=== PATIENT | female | born 1965 | race Caucasian/White ===

== ENCOUNTER → 2016-07-24 | Outpatient (CLI) | payer MEDICARE | LOC: MAMO 10:00 | DX: Z12.31 Encounter for screening mammogram for malignant neoplasm of breast (principal); Z90.710 Acquired absence of both cervix and uterus | CPT/HCPCS: G0202 ==

== ENCOUNTER 2021-06-09 12:14 | Inpatient (IN) | payer MEDICARE ==
[~2021-06-09] VITALS: Ht 172.7 cm; Wt 108.9 kg
[2021-06-09 13:35] LABS: HEMOGLOBIN 11.8 gm/dl (12.3-15.3); RED BLOOD COUNT 4.84 M/UL (4.00-5.10); WHITE BLOOD COUNT 7.3 K/UL (4.5-11.0)
[2021-06-09 14:11] LABS: BUN/CREATININE RATIO 15 (0-10)
[2021-06-09] MEDS ORDERED: ESCITALOPRAM OX20 MG PO (17:01)
[2021-06-09] MEDS ORDERED: LORAZEPAM0.5 MG PO (17:02)
[2021-06-09] MEDS ORDERED: METFORMIN HCL500 MG PO (17:02)
[2021-06-09] MEDS ORDERED: ROPINIROLE HCL0.5 MG PO (17:02)
[2021-06-09] MEDS ORDERED: LEVOTHYROXINE100 MCG PO (17:02)
[2021-06-09] MEDS ORDERED: OMEPRAZOLE40 MG PO (17:03)
[2021-06-09] MEDS ORDERED: LIPITOR TAB 2020 MG PO (17:03)
[2021-06-09] MEDS ORDERED: FAMOTIDINE20 MG PO (17:03)
[2021-06-09] MEDS ORDERED: CYANOCOBAL1000 MCG/1 INJ (17:04)
[2021-06-09] MEDS ORDERED: GABAPENTIN300 MG PO (17:04)
[2021-06-09] MEDS ORDERED: TYLENOL EXTRA500 MG PO (17:05)
[2021-06-09] MEDS ORDERED: VITAMIN D21250 MCG PO (17:05)
[2021-06-10 04:37] LABS: HEMOGLOBIN 10.6 gm/dl (12.3-15.3); RED BLOOD COUNT 4.42 M/UL (4.00-5.10); WHITE BLOOD COUNT 3.5 K/UL (4.5-11.0)
[2021-06-10 05:01] LABS: BUN/CREATININE RATIO 14 (0-10)
--- NOTE | 2021-06-10 13:55 | NUR ---
REQUESTED TO HAS CULINARY ARTIST CASE MANAGEMENT SET UP HOME OXYGEN FOR THIS PT AT [facility]. NURSE, SELF PAY REPRESENTATIVE, AND PARTS PERSON HAVE TRIED TO CONTACT CULINARY ARTIST ANIMAL PHYSIOLOGIST WITH NO SUCCESS.
--- NOTE | 2021-06-10 14:31 | NUR ---
PT ROOM AIR SAT 85%
--- NOTE | 2021-06-10 15:50 | NUR ---
NURSE SET UP HOME OXYGEN. [employer] HAS FACE SHEET, ROOM AIR SAT AND IS AWAITING THE SIGNED MD ORDER. MD MANDY HINTON.
[2021-06-11 05:11] LABS: HEMOGLOBIN 10.6 gm/dl (12.3-15.3); RED BLOOD COUNT 4.45 M/UL (4.00-5.10)
[2021-06-11 05:27] LABS: BUN/CREATININE RATIO 21 (0-10)
[2021-06-11 05:30] LABS: WHITE BLOOD COUNT 9.1 K/UL (4.5-11.0)
[2021-06-11] MEDS ORDERED: DECADRON6 MG PO (13:36)
== END 2021-06-11 16:47 | disposition home or self-care (01) | DRG 177 ==
LOC: ER1 12:14 → CDU 16:19 → MED SURG 4 06-10 06:54
PROVIDERS: Family Medicine; Physician Assistant; ADMIT Internal Medicine
PROC: 3E0333Z Introduction of Anti-inflammatory into Peripheral Vein, Percutaneous Approach (ICD-10-PCS; principal; 2021-06-09)
PROC: XW033E5 Introduction of Remdesivir Anti-infective into Peripheral Vein, Percutaneous Approach, New Technology Group 5 (ICD-10-PCS; 2021-06-09)
DX: U07.1 COVID-19 (principal); J12.82 Pneumonia due to coronavirus disease 2019; J96.01 Acute respiratory failure with hypoxia; I10 Essential (primary) hypertension; E78.5 Hyperlipidemia, unspecified; E03.9 Hypothyroidism, unspecified; F17.210 Nicotine dependence, cigarettes, uncomplicated; E11.40 Type 2 diabetes mellitus with diabetic neuropathy, unspecified; E66.01 Morbid (severe) obesity due to excess calories; E87.6 Hypokalemia; Z98.51 Tubal ligation status; Z85.828 Personal history of other malignant neoplasm of skin; Z83.3 Family history of diabetes mellitus; Z99.81 Dependence on supplemental oxygen; Z68.36 Body mass index [BMI] 36.0-36.9, adult; Z79.84 Long term (current) use of oral hypoglycemic drugs
CPT/HCPCS: 36415; 36600; 71045; 80048; 80053; 82009; 82550; 82553; 82803; 82962; 83036; 83605; 83735; 83874; 83880; 84484; 85025; 85379; 85610; 86140; 87040; 93005; 94760; 96374; 96375; 99285; J0248; J0456; J0696; J1100; J7030; U0002

== ENCOUNTER → 2021-07-06 | Day surgery (SDC) | payer OTHER ==
[~2021-07-06] MED LIST: CYANOCOBAL1000 MCG/1 INJ; DECADRON6 MG PO; ESCITALOPRAM OX20 MG PO; FAMOTIDINE20 MG PO; GABAPENTIN300 MG PO; LEVOTHYROXINE100 MCG PO; LIPITOR TAB 2020 MG PO; LORAZEPAM0.5 MG PO; METFORMIN HCL500 MG PO; OMEPRAZOLE40 MG PO; PROZAC10 MG PO; ROPINIROLE HCL0.5 MG PO; TYLENOL EXTRA500 MG PO; VITAMIN D21250 MCG PO; ZYRTEC10 MG PO
== END | disposition home or self-care (01) ==
LOC: OR 05:57
DX: K56.50 Intestinal adhesions [bands], unspecified as to partial versus complete obstruction (principal); K57.30 Diverticulosis of large intestine without perforation or abscess without bleeding; K64.1 Second degree hemorrhoids; K22.70 Barrett's esophagus without dysplasia; E11.9 Type 2 diabetes mellitus without complications; K21.9 Gastro-esophageal reflux disease without esophagitis; F41.9 Anxiety disorder, unspecified; E78.5 Hyperlipidemia, unspecified; E03.9 Hypothyroidism, unspecified; Z98.84 Bariatric surgery status; E66.8 Other obesity; Z68.36 Body mass index [BMI] 36.0-36.9, adult; Z79.84 Long term (current) use of oral hypoglycemic drugs; Z79.899 Other long term (current) drug therapy; Z20.822 Contact with and (suspected) exposure to COVID-19
CPT/HCPCS: 82962; J2704; J7040

== ENCOUNTER → 2021-10-16 | Outpatient (CLI) | payer MEDICARE | LOC: RAD 09:00 | DX: K56.699 Other intestinal obstruction unspecified as to partial versus complete obstruction (principal); K57.90 Diverticulosis of intestine, part unspecified, without perforation or abscess without bleeding | CPT/HCPCS: 74270 ==

== ENCOUNTER → 2021-10-17 | Outpatient (CLI) | payer MEDICARE | LOC: EXRD 10-02 10:15 | DX: K75.81 Nonalcoholic steatohepatitis (NASH) (principal); N28.1 Cyst of kidney, acquired | CPT/HCPCS: 76700 ==

== ENCOUNTER → 2021-12-18 | Outpatient (CLI) | payer MEDICARE | LOC: CT 09:44 | DX: N28.1 Cyst of kidney, acquired (principal) | CPT/HCPCS: 36415; 74170; 82565; 84520; Q9967 ==